=== PATIENT | female | born 1965 | race Caucasian/White ===

== ENCOUNTER 2017-12-30 21:32 | Emergency (ER) | payer OTHER, MEDICAID, SELFPAY ==
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
[2017-12-30 22:11] VITALS: BP 150/72; PULSE 103; RESP 14; TEMP 37.2; O2SAT 98; BMI 20.9
[2017-12-30 23:35] VITALS: BP 132/72; PULSE 80; RESP 14; O2SAT 99
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
== END 2017-12-30 23:37 | disposition home or self-care (01) ==
PROVIDERS: Emergency Provider Emergency Medicine; Family Provider Physical Medicine & Rehabilitation; PCP Physical Medicine & Rehabilitation
DX: M62.838 Other muscle spasm (principal); V48.5XXA Car driver injured in noncollision transport accident in traffic accident, initial encounter
CPT/HCPCS: 72125; 99282; 99283

== ENCOUNTER 2019-01-18 15:10 | Emergency (ER) | payer MEDICAID, SELFPAY ==
[2019-01-18 15:30] VITALS: BP 138/85; PULSE 142; RESP 18; TEMP 36.9; O2SAT 93; BMI 21.7
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
[2019-01-18 15:38] VITALS: BP 138/85; PULSE 142; RESP 18; TEMP 36.9; O2SAT 93; BMI 21.7
--- NOTE | 2019-01-18 15:43 | PC.NURSE ---
patient was put in a gown and then removed it and dressed herself. Sitting in a chair now and says she will stay but doesn't have to go to the bathroom yet. Lab notified for lab draw since patient is refusing an IV
[2019-01-18 16:01] LABS: Add Manual Diff / Slide Review NO; Basophils Absolute Auto 200 /uL (0-100); Basophils Percent Auto 2.7 % (0-2); Eosinophils Absolute Auto 0 /uL (0-450); Eosinophils Percent Auto 0.5 % (2-4); Hematocrit 50.9 % (36-46); Hemoglobin 17.3 g/dL (12.0-16.0); Lymphocytes Absolute Auto 2300 /uL (1100-4500); Lymphocytes Percent Auto 30.5 % (25-40); Mean Corpuscular Volume 88.2 fL (80-100); Monocytes Absolute Auto 300 /uL (0-900); Monocytes Percent Auto 4.5 % (3-14); Neutrophils Absolute Auto 4600 /uL (1500-7000); Neutrophils Percent Auto 61.8 % (50-75); Platelet Count 375 X10^3/uL (150-400); Red Blood Cell Count 5.77 X10^6/uL (4.0-5.2); Red Cell Distribution Width 14.8 % (11.6-14.8); White Blood Cell Count 7.4 X10^3/uL (4.5-11.0)
[2019-01-18 16:13] LABS: Alanine Aminotransferase 59 IU/L (9-52); Albumin 5.1 g/dL (3.5-5.0); Albumin Globulin Ratio 1.5 (1.0-2.8); Alkaline Phosphatase 86 U/L (38-126); Aspartate Aminotransferase 71 IU/L (14-36); BUN Creatinine Ratio 14.3 (6-22); Bilirubin Total 0.6 mg/dL (0.2-1.3); Blood Urea Nitrogen 10 mg/dL (7-17); Calcium 9.5 mg/dL (8.4-10.2); Carbon Dioxide 26 mmol/L (22-32); Chloride 101 mmol/L (98-107); Estimated Glomerular Filt Rate > 60.0 mL/min (>60); Ethanol (ETOH) 292 mg/dL; Globulin 3.4 g/dL (1.7-4.1); Glucose 110 mg/dL (70-100); HEMOLYSIS < 15 (0-50); Magnesium 1.8 mg/dL (1.6-2.3); Potassium 5.2 mmol/L (3.4-5.1); Sodium 144 mmol/L (137-145); Total Protein 8.5 g/dL (6.3-8.2)
[2019-01-18 16:29] LABS: Prolactin 37.7 ng/mL (3.0-18.6)
[2019-01-18 17:30] VITALS: BP 168/98; PULSE 120; RESP 12; O2SAT 98
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
[2019-01-18 17:37] VITALS: BP 168/98; PULSE 120; RESP 12; O2SAT 98
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
--- NOTE | 2019-01-18 19:32 | ED_ITS ---
HPI - Seizure <NICO Oliveira-BC - Last Filed: 01/18/19 19:33> General Chief Complaint: Seizure Stated Complaint: seizure, known seizure history. Time Seen by Provider: 01/18/19 15:19 Source: patient and EMS Mode of arrival: EMS Limitations: no limitations History of Present Illness HPI Narrative: The patient is a 53-year-old female current smoker with history of alcoholism and seizures who presents for chief complaint of a seizure by EMS. She states she has been drinking this morning, has a known history of seizures and does not take any medications for her seizures. She states she drinks ?too much.She denies any head pain, neck pain. EMS reported a postictal period and states that she clear during transport. She denies any head pain, neck pain, back pain, nausea vomiting or diarrhea. She states she would like to leave. She states she has an abrasion on her right elbow, but full range of motion. She denies any thoughts of hurting herself or anybody else. Related Data Home Medications Medication Instructions Recorded Confirmed lisdexamfetamine [Vyvanse] 30 mg PO DAILY 01/18/19 01/18/19 trazodone 50 mg PO BEDTIME PRN 01/18/19 01/18/19 Allergies Allergy/AdvReac Type Severity Reaction Status Date / Time shellfish derived Allergy Severe anaphalaxic Verified 12/30/17 22:11 [SHELLFISH DERIVED] Penicillins [PENICILLINS] Allergy Unknown Verified 12/30/17 22:11 STEROIDS Allergy Unknown Uncoded 10/11/17 12:33 Review of Systems <CARMINA Oliveira - Last Filed: 01/18/19 19:33> Review of Systems GENERAL: Denies chills, fatigue, malaise, fever, sweats. HEENT: Denies sinus pain, ear pain, sore throat, difficulty swallowing, dizziness. RESPIRATORY: Denies dyspnea, cough, wheezing, hemoptysis, sputum. CARDIOVASCULAR: Denies chest pain, palpitations, orthopnea, edema, GASTROINTESTINAL: Denies nausea, vomiting, abdominal pain, diarrhea, constipation, melena. : Denies dysuria, frequency, incontinence, hematuria, urinary retention. MUSCULOSKELETAL: denies weakness, joint pain, or bony pain SKIN: See HPI NEUROLOGIC: See HPI PSYCHIATRIC: See HPI 12 point review of systems is negative except for those stated above PFSH <TANIA Oliveira - Last Filed: 01/18/19 19:33> Medical History (Updated 01/18/19 @ 19:32 by TANIA Oliveira) Alcoholism (Acute) Family history non-contributory (Acute) Exam <TANIA Oliveira - Last Filed: 01/18/19 19:33> Narrative Exam Narrative: GENERAL: This is a well-nourished, well-developed patient, no acute distress HEAD: Atraumatic. Normocephalic. No temporal or scalp tenderness. EYES: Pupils equal round and reactive. Extraocular motions intact. No scleral icterus. No injection or drainage. ENT: Nose without bleeding, purulent drainage or septal hematoma. Throat without erythema, tonsillar hypertrophy or exudate. Uvula midline. Airway patent. NECK: Trachea midline. No JVD or lymphadenopathy. Supple, nontender, no meningeal signs. CARDIOVASCULAR: Regular rate and rhythm without murmurs, gallops, or rubs. RESPIRATORY: Clear to auscultation. Breath sounds equal bilaterally. No wheezes, rales, or rhonchi. No cough. No increased respiratory effort. No accessory muscle use. GASTROINTESTINAL: Abdomen soft, non-tender, nondistended. No hepato- splenomegaly, or palpable masses. No guarding. EXTREMITIES: Full range of motion noted right elbow. Using all extremities equally. BACK: Nontender without deformity or crepitance. No flank tenderness. No CT or L-spine tenderness. NEURO: AOx3. Stable gait. No gross cranial nerve deficit. Denies thoughts of hurting herself or anybody else. SKIN: 4 x 4 cm abrasion noted over right elbow. Initial Vital Signs Initial Vital Signs: Vital Signs Temperature 98.4 F 01/18/19 15:30 Pulse Rate 142 H 01/18/19 15:30 Respiratory Rate 18 01/18/19 15:30 Blood Pressure 138/85 01/18/19 15:30 Pulse Oximetry 93 01/18/19 15:30 <Marielle Izquierdo DO - Last Filed: 01/19/19 06:19> Initial Vital Signs Initial Vital Signs: Vital Signs Temperature 98.4 F 01/18/19 15:30 Pulse Rate 142 H 01/18/19 15:30 Respiratory Rate 18 01/18/19 15:30 Blood Pressure 138/85 01/18/19 15:30 Pulse Oximetry 93 01/18/19 15:30 Scores <TANIA Oliveira - Last Filed: 01/18/19 19:33> GCS Cecilia coma scale eye opening: Spontaneous Cecilia coma scale verbal response: Orientated Cecilia coma scale motor response: Obey commands [place] coma scale total score: 15 Course <TANIA Oliveira - Last Filed: 01/18/19 19:33> Orders Ordered: ED Orders 01/18/19 15:37 CT head/brain wo con Stat 01/18/19 15:50 Complete Blood Count AUTO DIFF Stat Comprehensive Metabolic Panel Stat Ethanol (ETOH) Stat Magnesium Stat Prolactin Stat Vital Signs - 8 hr 01/18/19 15:30 01/18/19 15:38 01/18/19 17:30 Temperature 98.4 F 98.4 F Pulse Rate 142 H 142 H 120 H Respiratory Rate 18 18 12 Blood Pressure 138/85 138/85 Blood Pressure [Right Arm] 168/98 H Pulse Oximetry 93 93 98 01/18/19 17:37 Temperature Pulse Rate 120 H Respiratory Rate 12 Blood Pressure 168/98 H Blood Pressure [Right Arm] Pulse Oximetry 98 <Marielle Izquierdo DO - Last Filed: 01/19/19 06:19> Orders Ordered: ED Orders 01/18/19 15:37 CT head/brain wo con Stat 01/18/19 15:50 Complete Blood Count AUTO DIFF Stat Comprehensive Metabolic Panel Stat Ethanol (ETOH) Stat Magnesium Stat Prolactin Stat Vital Signs - 8 hr 01/18/19 15:30 01/18/19 15:38 01/18/19 17:30 Temperature 98.4 F 98.4 F Pulse Rate 142 H 142 H 120 H Respiratory Rate 18 18 12 Blood Pressure 138/85 138/85 Blood Pressure [Right Arm] 168/98 H Pulse Oximetry 93 93 98 01/18/19 17:37 Temperature Pulse Rate 120 H Respiratory Rate 12 Blood Pressure 168/98 H Blood Pressure [Right Arm] Pulse Oximetry 98 MDM - Seizure <TANIA Oliveira - Last Filed: 01/18/19 19:33> Lab Data Result diagrams: 01/18/19 15:50 01/18/19 15:50 Lab Results 01/18/19 01/18/19 Range/Units 15:50 15:50 WBC 7.4 (4.5-11.0) X10^3/uL RBC 5.77 H (4.0-5.2) X10^6/uL Hgb 17.3 H (12.0-16.0) g/dL Hct 50.9 H (36-46) % MCV 88.2 (80-100) fL MCH 30.0 (26-34) PG MCHC 34.0 (30-36) % RDW 14.8 (11.6-14.8) % Plt Count 375 (150-400) X10^3/uL Neut % (Auto) 61.8 (50-75) % Lymph % (Auto) 30.5 (25-40) % [place] % (Auto) 4.5 (3-14) % Eos % (Auto) 0.5 L (2-4) % Baso % (Auto) 2.7 H (0-2) % Neut # (Auto) 4600 (6967-8303) /uL Lymph # (Auto) 2300 (0394-3631) /uL [place] # (Auto) 300 (0-900) /uL Eos # (Auto) 0 (0-450) /uL Baso # (Auto) 200 H (0-100) /uL Sodium 144 (137-145) mmol/L Potassium 5.2 H (3.4-5.1) mmol/L Chloride 101 (98-107) mmol/L Carbon Dioxide 26 (22-32) mmol/L BUN 10 (7-17) mg/dL Creatinine 0.70 (0.52-1.04) mg/dL Estimated GFR > 60.0 (>60) mL/min BUN/Creatinine Ratio 14.3 (6-22) Glucose 110 H (70-100) mg/dL Calcium 9.5 (8.4-10.2) mg/dL Magnesium 1.8 (1.6-2.3) mg/dL Total Bilirubin 0.6 (0.2-1.3) mg/dL AST 71 H (14-36) IU/L ALT 59 H (9-52) IU/L Alkaline Phosphatase 86 (38-126) U/L Total Protein 8.5 H (6.3-8.2) g/dL Albumin 5.1 H (3.5-5.0) g/dL Globulin 3.4 (1.7-4.1) g/dL Albumin/Globulin Ratio 1.5 (1.0-2.8) Prolactin 37.7 H (3.0-18.6) ng/mL Ethyl Alcohol 292 mg/dL Point of Care Testing Glucose POC [address] scan - head: Radiologist's impression: [address] [address] [address] Scan Report Signed Patient: Jennifer Watts CMR#: [id number] : 1965Acct:[id number] Age/Sex: 53 / FDate of Service: 01/18/19 Loc: ED Accession Number: [id number] Procedure: CT head/brain wo con Ordering Provider: Marielle Parker- PROCEDURE: CT HEAD/BRAIN WO CON INDICATIONS: glf, sz TECHNIQUE: Noncontrast 4.5 mm thick angled axial sections acquired from the foramen magnum to the vertex, with coronal and sagittal reformats. For radiation dose reduction, the following was used: automated exposure control, adjustment of mA and/or kV according to patient size. COMPARISON: None. FINDINGS: Image quality: Excellent. CSF spaces: Basal cisterns are patent. No extra-axial fluid collections. Ventricles are normal in size and shape. Brain: No midline shift. No intracranial masses or hemorrhage. Fitzgerald-white matter interface is normal. Skull and face: Calvarium and visualized facial bones are intact, without suspicious lesions. Sinuses: Visualized sinuses and mastoids are clear. IMPRESSION: 1. No acute intracranial abnormalities. Dictated by: Tamara Montemayor M.D. on 01/18/2019 at 16:13 Approved by: Tamara Montemayor M.D. on 01/18/2019 at 16:16 [facility] Narrative Medical decision making narrative: The patient is a 53-year-old female who presents with a chief complaint of a seizure. She presents requesting to go home. She is alert and oriented, but intoxicated. She did allow us to do a lab draw. I feel as though she is dehydrated as she is hemoconcentrated. She adamantly refuses an IV. Her alcohol level is in the 200s, but she is GCS 15. I feel as though her alcohol intake likely decreases her seizure threshold. She has a known seizure disorder. She requests to go home. She requests to walk home, but I stated would not discharge her without 71 accompanying her, so a cab was called. I discussed at length follow up with PCP. Encouraged her to stop drinking. Discussed coming back to the ER for any acute concerns such as confusion, chest pain or shortness of breath. The patient adamantly denies any thoughts of hurting herself or anybody else. She has a normal head CT. Patient states understanding of return precautions as well as follow-up instructions. Of note the patient did decline an IV, and declined further imaging beyond her h ead CT. <Marielle Dipti Izquierdo, DO - Last Filed: 01/19/19 06:19> Lab Data Lab Results 01/18/19 01/18/19 Range/Units 15:50 15:50 WBC 7.4 (4.5-11.0) X10^3/uL RBC 5.77 H (4.0-5.2) X10^6/uL Hgb 17.3 H (12.0-16.0) g/dL Hct 50.9 H (36-46) % MCV 88.2 (80-100) fL MCH 30.0 (26-34) PG MCHC 34.0 (30-36) % RDW 14.8 (11.6-14.8) % Plt Count 375 (150-400) X10^3/uL Neut % (Auto) 61.8 (50-75) % Lymph % (Auto) 30.5 (25-40) % [place] % (Auto) 4.5 (3-14) % Eos % (Auto) 0.5 L (2-4) % Baso % (Auto) 2.7 H (0-2) % Neut # (Auto) 4600 (7343-9930) /uL Lymph # (Auto) 2300 (1555-1851) /uL [place] # (Auto) 300 (0-900) /uL Eos # (Auto) 0 (0-450) /uL Baso # (Auto) 200 H (0-100) /uL Sodium 144 (137-145) mmol/L Potassium 5.2 H (3.4-5.1) mmol/L Chloride 101 (98-107) mmol/L Carbon Dioxide 26 (22-32) mmol/L BUN 10 (7-17) mg/dL Creatinine 0.70 (0.52-1.04) mg/dL Estimated GFR > 60.0 (>60) mL/min BUN/Creatinine Ratio 14.3 (6-22) Glucose 110 H (70-100) mg/dL Calcium 9.5 (8.4-10.2) mg/dL Magnesium 1.8 (1.6-2.3) mg/dL Total Bilirubin 0.6 (0.2-1.3) mg/dL AST 71 H (14-36) IU/L ALT 59 H (9-52) IU/L Alkaline Phosphatase 86 (38-126) U/L Total Protein 8.5 H (6.3-8.2) g/dL Albumin 5.1 H (3.5-5.0) g/dL Globulin 3.4 (1.7-4.1) g/dL Albumin/Globulin Ratio 1.5 (1.0-2.8) Prolactin 37.7 H (3.0-18.6) ng/mL Ethyl Alcohol 292 mg/dL Point of Care Testing Glucose POC 150 Discharge Plan Departure Patient Disposition: Home Clinical Impression: Intoxication, Seizure Discharge Date/Time: 01/18/19 17:35 Interventions: ED Discharge Assessment Last Done: 01/18/19 17:37 Instructions: DI for Seizure Disorder -- Adult, DI for Alcohol Abuse, DI for Alcohol Poisoning Activity Restrictions/Additional Instructions: Please follow up with primary care provider. Please come back to the ER for any acute concerns such as chest pain, shortness of breath etc. Her head CT is normal, but your lab work indicates that you have had a seizure. Be aware of that alcohol can decrease your seizure threshold. Prescriptions: No Action trazodone 50 mg tablet 50 mg PO BEDTIME PRN (Reason: Insomnia) RF: 0 Vyvanse 30 mg capsule 30 mg PO DAILY RF: 0 <Marielle Izquierdo DO - Last Filed: 01/19/19 06:19> Cosign ED Attending Cristianoature Attestation: I was immediately available in the department for consultation. This documentation has been reviewed and I agree with assessment and plan. Supervised by Marielle Izquierdo DO
== END 2019-01-18 17:35 | disposition home or self-care (01) ==
PROVIDERS: Emergency Provider Nurse Practitioner Family
DX: R56.9 Unspecified convulsions (principal); F10.920 Alcohol use, unspecified with intoxication, uncomplicated
CPT/HCPCS: 70450; 80053; 80320; 83735; 84146; 85025; 99282; 99284

== ENCOUNTER → 2020-05-07 10:47 | Outpatient (CLI) | payer OTHER, MEDICAID, SELFPAY ==
--- NOTE | 2020-05-07 | DI.RAD.S_ITS ---
PROCEDURE: XR HAND RT MIN 3V INDICATIONS: RIGHT HAND PAIN TECHNIQUE: 3 views of the hand(s) acquired. COMPARISON: None. FINDINGS: Bones: No fractures or dislocations. Carpal bones are normally aligned. No suspicious bony lesions. Soft tissues: No suspicious soft tissue calcifications. IMPRESSION: No definite radiographic abnormality. If pain persists with conservative management, consider cross sectional imaging such as CT or MRI for further assessment. Dictated by: Maximus Avery [facility] Interpreted: Mindy Salcedo MD on 05/07/2020 at 12:20 Approved by: Mindy Salcedo M.D. on 05/07/2020 at 13:06
--- NOTE | 2020-05-07 10:53 | DI.RAD.S_ITS ---
PROCEDURE: XR THORACIC SPINE 3V INDICATIONS: evaluate for spinal abnormalities TECHNIQUE: 3 views of the thoracic spine were acquired. COMPARISON: [facility], CR, SPINE LUMB 2 OR 3VW, 07/18/2016, 11:23. [facility], MR, L-SPINE WITHOUT CONTRAST, 07/21/2016, 19:26. [facility], [place], BONE SCAN WHOLE BODY, 08/03/2016, 11:34. [facility], CR, XR THORACIC SPINE 2VW, 07/18/2016, 11:28. [facility], MR, T-SPINE WITHOUT CONTRAST, 07/21/2016, 19:08. [facility], MR, T-SPINE W&WO CONTRAST, 09/05/2016, 14:59. [facility], CT, CT CERVICAL SPINE WO CON, 12/30/2017, 22:09. FINDINGS: Bones: No fractures or dislocations. No suspicious bony lesions. 12 pairs of ribs are noted, and appear intact where visualized. Soft tissues: No paravertebral stripe thickening. IMPRESSION: Normal thoracic spine radiograph. Dictated by: Tamara Montemayor M.D. on 05/07/2020 at 16:48 Approved by: Tamara Montemayor M.D. on 05/07/2020 at 16:51
== END ==
PROVIDERS: PCP Family Medicine; Referring Provider Family Medicine; Visit Provider Family Medicine
DX: M47.814 Spondylosis without myelopathy or radiculopathy, thoracic region (principal); M79.641 Pain in right hand
CPT/HCPCS: 72072; 73130

== ENCOUNTER → 2020-05-14 18:56 | Outpatient (CLI) | payer OTHER, MEDICAID, SELFPAY ==
--- NOTE | 2020-05-14 18:58 | DI.MRI.S_ITS ---
PROCEDURE: MR THORACIC SPINE WO CON INDICATIONS: Evaluate for disc herniation and other spinal abnormality TECHNIQUE: Noncontrast sagittal T1 spine echo and T2 fast spin echo, sagittal STIR, axial T1 and T2 fast spin echo through the thoracic spine. COMPARISON: [facility], MR, T-SPINE WITHOUT CONTRAST, 07/21/2016, 19:08. [facility], MR, T-SPINE W&WO CONTRAST, 09/05/2016, 14:59. FINDINGS: Image quality: Excellent. Alignment and Curvature: There is normal bony alignment. Bone Marrow: Marrow is of normal overall signal. Persistent, unchanged appearance of hypointense signal at T7 on T1 and T2 sequences. It demonstrates minimal increased signal on all cap STIR sequence. No acute vertebral body compression fractures. Spinal Cord: Visualized spinal cord is normal in size and signal. Paraspinous Soft Tissues: No paravertebral masses. Miscellaneous: On axial images, central canal and foramina appear widely patent at all scanned levels. Trace disc bulges present at T9-10, T10-11, T11-12. IMPRESSION: 1. Minimal disc bulges without spinal stenosis or foraminal narrowing. Numeral 2. Unchanged appearance of hypointense T7 vertebral body stable since 2017. As previously noted, this is suspicious for an atypical benign osseous hemangioma. Dictated by: Mindy Salcedo M.D. on 05/15/2020 at 13:04 Approved by: Mindy Salcedo M.D. on 05/15/2020 at 13:09
== END ==
PROVIDERS: PCP Family Medicine; Referring Provider Family Medicine; Visit Provider Family Medicine
DX: M47.814 Spondylosis without myelopathy or radiculopathy, thoracic region (principal)
CPT/HCPCS: 72146

== ENCOUNTER → 2025-01-20 11:26 | Outpatient (CLI) | payer OTHER, SELFPAY ==
--- NOTE | 2025-01-20 11:28 | DI.RAD.S_ITS ---
PROCEDURE: XR CERVICAL SPINE 2V OR 3V INDICATIONS: back pain TECHNIQUE: 3 view(s) of the cervical spine were acquired. COMPARISON: [facility], CR, XR THORACIC SPINE 2V, 01/20/2025, 11:24. FINDINGS: Bones: No fractures or dislocations to the T1 level. Moderate degenerative changes most pronounced at C4-C5 and C5-C6. The lateral masses of C1 appear intact on the odontoid view. No suspicious bony lesions. Soft tissues: No prevertebral soft tissue swelling. IMPRESSION: Moderate degenerative changes in the cervical spine. Dictated by: Romulo Lockhart M.D. on 01/20/2025 at 21:47 Approved by: Romulo Lockhart M.D. on 01/20/2025 at 22:01
--- NOTE | 2025-01-20 11:28 | DI.RAD.S_ITS ---
PROCEDURE: XR THORACIC SPINE 2V INDICATIONS: chronic back pain TECHNIQUE: 3 views of the thoracic spine were acquired. COMPARISON: [facility], , XR THORACIC SPINE 3V, 05/07/2020, 11:10. FINDINGS: Bones: No fractures or dislocations. No suspicious bony lesions. Mild degenerative changes. 12 pairs of ribs are noted, and appear intact where visualized. Soft tissues: No paravertebral stripe thickening. IMPRESSION: Mild degenerative changes. Dictated by: Romulo Lockhart M.D. on 01/20/2025 at 22:03 Approved by: Romulo Lockhart M.D. on 01/20/2025 at 22:05
--- NOTE | 2025-01-20 11:28 | DI.RAD.S_ITS ---
PROCEDURE: XR LUMBAR SPINE 2-3V INDICATIONS: chronic back pain TECHNIQUE: 3 views of the lumbar spine were acquired. COMPARISON: , CR, XR THORACIC SPINE 2V, 01/20/2025, 11:24. FINDINGS: Bones: 5 rrn-byz-rruzonl vertebrae are present. There is normal bony alignment. Small vertebral body osteophytes. No vertebral body compression fractures. No suspicious bony lesions. Soft tissues: Overlying bowel gas pattern is normal. No suspicious soft tissue calcifications. Clips in the pelvis. IMPRESSION: No compression fracture. Teel-zy-uziyiach degenerative changes. Dictated by: Romulo Lockhart M.D. on 01/20/2025 at 22:01 Approved by: Roumlo Lockhart M.D. on 01/20/2025 at 22:03
== END ==
PROVIDERS: PCP Family Medicine; Referring Provider Family Medicine; Visit Provider Family Medicine
DX: M47.812 Spondylosis without myelopathy or radiculopathy, cervical region (principal); M47.814 Spondylosis without myelopathy or radiculopathy, thoracic region; M47.816 Spondylosis without myelopathy or radiculopathy, lumbar region; M54.50 Low back pain, unspecified; M54.9 Dorsalgia, unspecified; G89.29 Other chronic pain
CPT/HCPCS: 72040; 72070; 72100

== ENCOUNTER 2025-01-30 14:46 | Emergency (ER) | payer OTHER, SELFPAY ==
[2025-01-30 14:50] VITALS: BP 170/73; PULSE 100; RESP 97; TEMP 36.6; O2SAT 97; BMI 20.3
--- NOTE | 2025-01-30 14:56 | DI.RAD.S_ITS ---
PROCEDURE: XR CHEST 1V INDICATIONS: Chest Pain TECHNIQUE: One view of the chest was acquired. COMPARISON: None. FINDINGS: Surgical changes and devices: None. Lungs and pleura: Lungs are clear. No pleural effusions or pneumothorax. Mediastinum: Mediastinal contours appear normal. Heart size is normal. Bones and chest wall: No suspicious bony lesions. Overlying soft tissues appear unremarkable. IMPRESSION: No acute cardiopulmonary pathology. Dictated by: Lazaro Yeboah M.D. on 01/30/2025 at 15:55 Approved by: Lazaro Yeboah M.D. on 01/30/2025 at 15:55
--- NOTE | 2025-01-30 15:02 | EKG_ITS ---
[facility] [address] [place] [address] Test Date: 2025-01-30 Pat Name: Jennifer Lusk Department: [facility] Room: Gender: Female Internal Audit Manager: : 1965 Requested By: Order Number: [id number] Reading MD: Alessandro Avelar Measurements Intervals [place] Rate: 78 P: OK: 104 QRS: 217 QRSD: 102 T: 54 QT: 396 QTc: 451 Interpretive Statements Sinus rhythm with short OK Right superior axis deviation Incomplete right bundle branch block Electronically Signed On 02-07-2025 13:54:44 PDT by Alessandro Avelar
[2025-01-30] MEDS: ASPIRIN 81 MG CHEW TAB 324 MG PO (15:03)
[2025-01-30 15:32] LABS: INR 1.0 (0.9-1.3); Prothrombin Time 10.9 SECONDS (9.4-12.5)
[2025-01-30 15:35] LABS: PTT Partial Thromboplastin Tim 32 SECONDS (25.1-36.5)
[2025-01-30 15:39] LABS: Add Manual Diff / Slide Review NO; Hematocrit 44.9 % (36-46); Hemoglobin 15.9 g/dL (12.0-16.0); Lymphocytes Absolute Auto 2500 /uL (1100-4500); Mean Corpuscular HGB Conc 35.4 % (30-36); Mean Corpuscular Hemoglobin 30.7 PG (26-34); Mean Corpuscular Volume 86.8 fL (80-100); Platelet Count 158 X10^3/uL (150-400)
[2025-01-30 15:40] LABS: Alanine Aminotransferase 43 IU/L (<35); Albumin 4.8 g/dL (3.5-5.0); Albumin Globulin Ratio 1.7 (1.0-2.8); Alkaline Phosphatase 69 U/L (38-126); Blood Urea Nitrogen 22 mg/dL (7-17); Calcium 9.9 mg/dL (8.4-10.2); Carbon Dioxide 22 mmol/L (22-32); Chloride 105 mmol/L (98-107); Creatine Kinase 89 U/L (30-135); Estimated Glomerular Filt Rate > 60 mL/min (>60); Globulin 2.8 g/dL (1.7-4.1); Glucose 129 mg/dL (70-99); HEMOLYSIS < 15 (0-50); Lipase 72 U/L (23-300); Magnesium 1.7 mg/dL (1.6-2.3); Potassium 4.3 mmol/L (3.4-5.1); Sodium 135 mmol/L (137-145); Total Protein 7.6 g/dL (6.3-8.2)
[2025-01-30 15:51] LABS: NT-proBNP (BNP-Adult 18+) 261 pg/mL (<125); Troponin I < 0.012 ng/mL (0.01-0.034)
[2025-01-30 17:53] LABS: Troponin I < 0.012 ng/mL (0.01-0.034)
[2025-01-30 20:52] VITALS: PULSE 63; O2SAT 98
[2025-01-30 20:53] VITALS: BP 130/67; PULSE 60; O2SAT 97
[2025-01-30 21:00] VITALS: BP 118/60; PULSE 60; O2SAT 96
--- NOTE | 2025-01-30 21:12 | ED_ITS ---
HPI - Chest Pain General Chief Complaint: Chest Pain Stated Complaint: Chest pain Time Seen by Provider: 01/30/25 17:58 Mode of arrival: Ambulatory History of Present Illness HPI narrative: 59-year-old female history of alcoholism in remission, seizures, ADHD was at [employer] after taking her Vyvanse started to have midsternal chest pain along with dizziness described as lightheadedness white feels like she was being squeezed that lasted for few minutes. She states that she is currently being worked up for arrhythmias with a heart rate being as low as the 30s that she has a appointment next week to get Holter monitor completed. The pain has since subsided since coming here and being on aspirin. Other than what is stated 14 point review of system is negative. Related Data Home Medications ?Medication ?Instructions ?Recorded ?Confirmed lisdexamfetamine 30 mg capsule 30 mg PO DAILY 01/18/19 01/28/25 Previous Rx's ?Medication ?Instructions ?Recorded meloxicam 15 mg tablet 15 mg PO DAILY #60 tabs 01/01 03/27 Allergies Allergy/AdvReac Type Severity Reaction Status Date / Time shellfish derived (SHELLFISH Allergy Severe anaphalaxic Verified 01/30/25 14:50 DERIVED) Penicillins (PENICILLINS) Allergy Unknown Verified 01/30/25 14:50 STEROIDS Allergy Unknown Uncoded 01/30/25 14:50 Review of Systems Review of Systems ROS Unobtainable: All systems reviewed & are unremarkable except as noted in HPI and below Patient History Medical History (Updated 01/30/25 @ 21:39 by Jagdish Josue, ) Bradycardia Degeneration of cervical intervertebral disc Rosacea (~1969) PTSD (post-traumatic stress disorder) (~1969) ADHD (~1969) Wrist pain (~2019) Shoulder pain (~2019) Scoliosis (~1978) Osteopenia (~2013) Lumbar spine pain (~1999) Foot pain (~2019) Anemia (~1974) Abnormal Pap smear of cervix (~2003) Degenerative arthritis of thoracic spine De Quervain's disease (tenosynovitis) Cervical cancer (~2003) Menopause Family history non-contributory Alcoholism Surgical History (Updated 05/07/20 @ 21:48 by Chantal Soriano) Anesthesia History of surgery (~1996) History of appendectomy (~1974) Endometriosis (~1999) Family History (Updated 05/07/20 @ 22:01 by Chantal Soriano) Father Congestive heart failure Hypertension Hyperlipidemia Mother History of heart disease Hyperlipidemia Hypertension Stroke Grandfather History of heart disease Diabetes mellitus Grandmother Diabetes mellitus History of heart disease Social History Smoking Status: Never smoker Smoking Status: Never smoker Exam Narrative Exam Narrative: GENERAL: [59] year old patient appears stated age. Well-developed patient, in mild distress. HEAD: Atraumatic. Normocephalic. EYES: Pupils equal round and reactive. Extraocular motions intact. No scleral icterus. No injection or drainage. ENT: Nose without bleeding, purulent drainage. Throat without erythema, tonsillar hypertrophy or exudate. Airway patent. NECK: Trachea midline. Non tender CARDIOVASCULAR: Regular rate and rhythm without murmurs, gallops, or rubs. RESPIRATORY: Clear to auscultation. Breath sounds equal bilaterally. No wheezes, rales, or rhonchi. GASTROINTESTINAL: Abdomen soft, non-tender, nondistended. EXTREMITIES: No edema or joint tenderness. BACK: Nontender without deformity or crepitance. No flank tenderness. NEURO: AOx3. SKIN: No rash or erythema of visible areas Initial Vital Signs Initial Vital Signs: Vital Signs Temperature 98 F 01/30/25 14:50 Pulse Rate 100 H 01/30/25 14:50 Respiratory Rate 97 H 01/30/25 14:50 Blood Pressure 170/73 H 01/30/25 14:50 Pulse Oximetry 97 01/30/25 14:50 Oxygen Delivery Method Room Air 01/30/25 14:50 Scores HEART Score Heart Score history: Slightly Suspicious Heart Score EKG: Non-Specific repolarization disturbance Heart Score Age: 45-64 years old Heart Score risk factors: No known risk factors Heart Score troponin: < or = to normal limit Heart Score Total: 2 Course Orders Ordered: ED Orders 01/30/25 14:56 XR chest 1V Stat EKG-12 Lead Stat 01/30/25 15:11 Complete Blood Count AUTO DIFF Stat Comprehensive Metabolic Panel Stat Lipase Stat Magnesium Stat NT-proBNP (BNP-Adult 18+) Stat PTT Partial Thromboplastin Jarvis Stat Prothrombin Time INR Stat Troponin & CK Cardiac Panel Stat 01/30/25 17:17 Troponin I Stat Discontinued Medications Aspirin (Aspirin 81 Mg Chew Tab) 324 mg PO NOW ONE Stop: 01/30/25 14:57 Last Admin: 01/30/25 15:03 Dose: 324 mg Documented By: LG Vital Signs Vital signs: Vital Signs - 8 hr 01/30/25 14:50 Temperature 98 F Pulse Rate 100 H Respiratory Rate 97 H Blood Pressure 170/73 H Pulse Oximetry 97 Oxygen Delivery Method Room Air MDM - Chest Pain Lab Data 01/30/25 15:11 01/30/25 15:11 Labs: Lab Results 01/30/25 01/30/25 Range/Units 15:11 17:17 WBC 8.6 (4.5-11.0) X10^3/uL RBC 5.17 (4.0-5.2) X10^6/uL Hgb 15.9 (12.0-16.0) g/dL Hct 44.9 (36-46) % MCV 86.8 (80-100) fL MCH 30.7 (26-34) PG MCHC 35.4 (30-36) % RDW 13.2 (11.6-14.8) % Plt Count 158 (150-400) X10^3/uL Neut % (Auto) 65.5 (50-75) % Lymph % (Auto) 28.7 (25-40) % Glasscock % (Auto) 3.9 (3-14) % Eos % (Auto) 1.1 L (2-4) % Baso % (Auto) 0.8 (0-2) % Neut # (Auto) 5600 (1838-3723) /uL Lymph # (Auto) 2500 (9233-0864) /uL Glasscock # (Auto) 300 (0-900) /uL Eos # (Auto) 100 (0-450) /uL Baso # (Auto) 100 (0-100) /uL PT 10.9 (9.4-12.5) SECONDS INR 1.0 (0.9-1.3) APTT 32 (25.1-36.5) SECONDS Sodium 135 L (137-145) mmol/L Potassium 4.3 (3.4-5.1) mmol/L Chloride 105 (98-107) mmol/L Carbon Dioxide 22 (22-32) mmol/L BUN 22 H (7-17) mg/dL Creatinine 0.68 (0.52-1.04) mg/dL Estimated GFR > 60 (>60) mL/min BUN/Creatinine Ratio 32.4 H (6-22) Glucose 129 H (70-99) mg/dL Calcium 9.9 (8.4-10.2) mg/dL Magnesium 1.7 (1.6-2.3) mg/dL Total Bilirubin 0.7 (0.2-1.3) mg/dL AST 43 H (14-36) IU/L ALT 43 H (<35) IU/L Alkaline Phosphatase 69 (38-126) U/L Total Creatine Kinase 89 (30-135) U/L Troponin I < 0.012 < 0.012 (0.01-0.034) ng/mL NT-Pro-B Natriuret Pep 261 H (<125) pg/mL Total Protein 7.6 (6.3-8.2) g/dL Albumin 4.8 (3.5-5.0) g/dL Globulin 2.8 (1.7-4.1) g/dL Albumin/Globulin Ratio 1.7 (1.0-2.8) Lipase 72 (23-300) U/L Imaging Data Chest x-ray: Radiologist's Impression: [place] [address] XRay Report Signed Patient: Jennifer Watts MR#: [id number] : 1965 Acct:[id number] Age/Sex: 59 / F Date of Service: 01/30/25 Loc: ED Accession Number: [id number] Procedure: XR chest 1V Ordering Provider: Axel Omer MD PROCEDURE: XR CHEST 1V INDICATIONS: Chest Pain TECHNIQUE: One view of the chest was acquired. COMPARISON: None. FINDINGS: Surgical changes and devices: None. Lungs and pleura: Lungs are clear. No pleural effusions or pneumothorax. Mediastinum: Mediastinal contours appear normal. Heart size is normal. Bones and chest wall: No suspicious bony lesions. Overlying soft tissues appear unremarkable. IMPRESSION: No acute cardiopulmonary pathology. ECG Data Interpretation: Sinus Rhythm SAD HR 78 ND 104 QRS [address]-t wave change No previous EKG to compare MDM Narrative Medical decision making narrative: Vital signs, nurse triage note, medication list, previous ER visits, and all imaging studies reviewed. Patient given aspirin here. Patient had EKG done here showing sinus rhythm with short ND interval but no STT wave changes. Two sets troponins are normal. BNP 261. Magnesium 1.7 lipase normal. Chest x-ray showed no acute process. Differential diagnosis anemia thyroid disease electrolyte derangement arrhythmia STEMI NSTEMI anxiety GERD. Patient will follow up for Holter monitor placement and follow up with PCP for follow up care. Discharge Plan Departure Patient Disposition: Home Clinical Impression: Chest pain Qualifiers: Chest pain type: chest pain on breathing Qualified Code(s): R07.1 - Chest pain on breathing Instructions: DI for Chest Pain Activity Restrictions/Additional Instructions: Return with new or worsening symptoms. Follow up for Holter monitor placement and PCP next week for recheck. Prescriptions: No Action meloxicam 15 mg tablet 15 mg PO DAILY Qty: 60 1RF Vyvanse 30 mg capsule 30 mg PO DAILY Patient Comments: TK 1 C PO QD Referrals: Dheeraj Herring MD [Primary Care Provider, Family Practice] Stand Alone Forms: Patient Portal/API
[2025-01-30 21:30] VITALS: BP 168/81; PULSE 60; O2SAT 97
--- NOTE | 2025-01-30 21:45 | PC.NURSE ---
See provider assessment for details, pt seen by nurse prior to discharge only.
== END 2025-01-30 21:46 | disposition home or self-care (01) ==
PROVIDERS: Emergency Medicine; Emergency Provider Family Medicine; PCP Family Medicine
DX: R07.1 Chest pain on breathing (principal); R42 Dizziness and giddiness
CPT/HCPCS: 36415; 71045; 80053; 82550; 83690; 83735; 83880; 84484; 85025; 85610; 85730; 93005; 99283; 99284

== ENCOUNTER → 2025-02-06 07:50 | Outpatient (CLI) | payer OTHER, SELFPAY | LOC: CAR 07:51 | PROVIDERS: PCP Family Medicine; Referring Provider Family Medicine; Visit Provider Family Medicine | DX: G89.29 Other chronic pain (principal); M47.814 Spondylosis without myelopathy or radiculopathy, thoracic region; M54.2 Cervicalgia; M54.50 Low back pain, unspecified; R00.1 Bradycardia, unspecified; M41.9 Scoliosis, unspecified | CPT/HCPCS: 93242 ==